=== PATIENT | female | born 1995 | race Caucasian/White ===

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

== ENCOUNTER 2017-07-06 17:09 | Emergency (ER) | payer SELFPAY ==
[2017-07-06 18:20] VITALS: BP 115/77
--- NOTE | 2017-07-06 19:15 | UC ---
Ear Complaint HPI - HPI Summary HPI Summary: 3 WEEKS OF COUGH AND CHEST CONGESTION. RIGHT EAR PAIN OVER PAST 2 DAYS. NO FEVER, N/V/D. NO BODY ACHES. - History of Current Complaint Chief Complaint: UCEar Stated Complaint: COUGH,SORE THROAT,EARACHE Time Seen by Provider: 07/06/17 18:56 Hx Obtained From: Patient Hx Last Menstrual Period: 06/10/17 Onset/Duration: Gradual Onset, Lasting Weeks, Still Present Severity Initially: Moderate Severity Currently: Moderate Pain Intensity: 6 Pain Scale Used: 0-10 Numeric Aggravating Factors: Nothing Alleviating Factors: Nothing Associated Signs/Symptoms: Positive: URI Symptoms. Negative: Discharge, Hearing Loss - Allergies/Home Medications Allergies/Adverse Reactions: Allergies Allergy/AdvReac Type Severity Reaction Status Date / Time Atropine [From ] Allergy Severe Anaphylatic Verified 07/06/17 18:20 Shock Bee Venom Allergy Severe Anaphylatic Verified 07/06/17 18:20 Shock Hyoscyamine [From ] Allergy Severe Anaphylatic Verified 07/06/17 18:20 Shock Phenobarbital [From ] Allergy Severe Anaphylatic Verified 07/06/17 18:20 Shock Scopolamine [From ] Allergy Severe Anaphylatic Verified 07/06/17 18:20 Shock Cephalexin [From Keflex] Allergy Intermediate Rash Verified 07/06/17 18:20 PMH/Surg Hx/FS Hx/Imm Hx Psychological History: Depression - Surgical History Surgical History: None Surgery Procedure, Year, and Place: denies - Family History Known Family History: Positive: Hypertension Negative: Cardiac Disease - Social History Alcohol Use: None Substance Use Type: None, Sedatives Smoking Status (MU): Never Smoked Tobacco Have You Smoked in the Last Year: No Household Exposure Type: Cigarettes - Immunization History Hx Tetanus, Diphtheria Vaccination: Yes Vaccination Up to Date: Yes Review of Systems Constitutional: Fatigue ENT: Ear Ache, Nasal Discharge Respiratory: Cough Cardiovascular: Negative Gastrointestinal: Negative All Other Systems Reviewed And Are Negative: Yes Physical Exam Triage Information Reviewed: Yes Appearance: Well-Appearing, No Pain Distress, Well-Nourished Vital Signs: Initial Vital Signs Temp 99.1 F 07/06/17 18:13 Pulse 84 07/06/17 18:13 Resp 18 07/06/17 18:13 BP 115/77 07/06/17 18:13 Pulse Ox 100 07/06/17 18:13 Vital Signs Reviewed: Yes Eyes: Positive: Conjunctiva Clear ENT: Positive: Hearing grossly normal, Pharynx normal, TMs normal Neck: Positive: Supple, Nontender, No Lymphadenopathy Respiratory Exam: Normal Cardiovascular Exam: Normal Abdomen Description: Positive: Soft Musculoskeletal: Positive: No Edema Neurological: Positive: Alert Psychological: Positive: Age Appropriate Behavior Skin: Negative: rashes Ear Complaint Course/Dx - Differential Dx/Diagnosis Provider Diagnoses: ACUTE URI Discharge - Discharge Plan Condition: Stable Disposition: HOME Patient Education Materials: Upper Respiratory Infection (ED), Earache (ED) Referrals: Mena Ackerman MD [Primary Care Provider] - If Needed Additional Instructions: TRY OTC AFRIN FOR NASAL CONGESTION. OKAY TO USE 2-3 SPRAYS IN EACH NOSTRIL UP TO 2 TIMES DAILY. DO NOT USE FOR MORE THAN 3-4 CONSECUTIVE DAYS TO PREVENT DEVELOPING REBOUND CONGESTION. EAR PAIN, NON-SPECIFIC There are many causes of ear pain in adults. Pain that's felt in the ear can actually be coming from somewhere nearby. This is called "referred pain." Problems in the teeth, throat, or jaw joint (TMJ) often cause ear pain. Sometimes the physical exam or medical history suggests a treatable cause. If not, we may wait for the pain to go away. New symptoms may offer a clue to the cause of the pain. Report any changes to your care provider. These are some conditions that can cause ear pain, but may not be obvious from physical examination: Eardrum injury Pressure changes (barotrauma) due to swimming or shock waves Mild trauma such as Q-tip injury or finger-picking the outer ear Mild outer ear infection (swimmer's ear) Low-grade or chronic middle ear infection Mastoiditis (infection in the bone behind the ear) TMJ syndrome or arthritis of the jaw Pressure from hard earwax Tooth infection Infected tonsil Sinus infection Nerve disease such as Davidson's Palsy Follow your care provider's treatment recommendations. Let the ear rest. Don't insert cotton swabs, dig at the ear with your finger, or force your ears to "pop." If you're not improving after a few days, or if new symptoms arise, see the doctor. Watch for: Decreased hearing Spreading pain or headache Drainage or bleeding from the ear Fever Weakness of the face muscles Other new symptoms YOUR SYMPTOMS ARE LIKELY VIRALLY MEDIATED AND SHOULD RESOLVE ON THEIR OWN WITH TIME. REST, HYDRATE, OTC MEDS NEEDED. SEEK FOLLOW-UP IF YOU ARE NOT IMPROVING OVER THE NEXT 1-2 WEEKS.
== END 2017-07-06 19:32 | disposition home or self-care (01) ==
LOC: UCEAST 17:09
DX: J06.9 Acute upper respiratory infection, unspecified (principal)
CPT/HCPCS: 99211; G0463

== ENCOUNTER 2019-04-27 17:00 | Emergency (ER) | payer OTHER ==
[2019-04-27] MEDS ORDERED: Ibuprofen TAB* 400 MG PO ONE (19:09)
[2019-04-27 20:26] LABS: ABS Basophils 0.1 10^3/ul (0-0.2); ABS Monocytes 1.3 10^3/ul (0-0.8); ABS Neutrophils 10.4 10^3/ul (1.5-7.7); Eosinophil % 0.2 %; Hematocrit 43 % (35-47); Hemoglobin 15.3 g/dL (12.0-16.0); Lymphocyte % 14.6 %; Mean Corpuscular HGB Conc 35 g/dL (31-36); Mean Corpuscular Hemoglobin 30 pg (27-31); Mean Corpuscular Volume 85 fL (80-97); Mean Platelet Volume 7.9 fL (7.4-10.4); Platelet Count 252 10^3/uL (150-450); Red Blood Count 5.11 10^6 /uL (3.70-4.87); Red Cell Distribution Width 14 % (10-15); White Blood Count 13.7 10^3/uL (3.5-10.8)
[2019-04-27 20:42] LABS: Albumin 4.8 g/dL (3.2-5.2); Albumin/Globulin Ratio 1.3 (1-3); BUN/Creatinine Ratio 7.6 (8-20); EGFR African American 92.4 (>60); EGFR Non-African American 76.3 (>60); Globulin 3.7 g/dL (2-4); Potassium 3.6 mmol/L (3.5-5.0); Total Protein 8.5 g/dL (6.4-8.9)
--- NOTE | 2019-04-27 21:11 | ED ---
Influenza-Like Illness - HPI Summary HPI Summary: Patient complains of productive cough, fever or diarrhea, body aches, sore throat, yellow nasal discharge, forehead pressure and headache, lightheadedness , nausea 3 days. Patient tolerating by mouth fluids. Patient denies CP, SOB, vomiting, abdominal pain, urine symptoms. Medical history is none. - History of Current Complaint Chief Complaint: EDFluSymptoms Time Seen by Provider: 04/27/19 21:08 Hx Obtained From: Patient Onset/Duration: Gradual Onset, Lasting Days Severity: Moderate Associated Signs & Symptoms: Fever, Myalgia, Cough, Sore Throat, Nasal Congestion, Headache, Diarrhea - Allergy/Home Medications Allergies/Adverse Reactions: Allergies Allergy/AdvReac Type Severity Reaction Status Date / Time MS Atropine [From ] Allergy Severe Anaphylatic Verified 07/06/17 18:20 Shock MS Bee Venom [Bee Venom] Allergy Severe Anaphylatic Verified 07/06/17 18:20 Shock MS Hyoscyamine Allergy Severe Anaphylatic Verified 07/06/17 18:20 [From ] Shock MS Phenobarbital Allergy Severe Anaphylatic Verified 07/06/17 18:20 [From ] Shock MS Scopolamine Allergy Severe Anaphylatic Verified 07/06/17 18:20 [From ] Shock MS Cephalexin [From Keflex] Allergy Intermediate Rash Verified 07/06/17 18:20 Home Medications: Home Medications Vit No.129/Iron/Folic [ One Daily] 1 tab PO DAILY 04/27/19 [ History Confirmed 04/27/19] PMH/Surg Hx/FS Hx/Imm Hx Endocrine/Hematology History: Denies: Hx Diabetes, Hx Thyroid Disease Cardiovascular History: Denies: Hx Hypertension Respiratory History: Denies: Hx Asthma, Hx Chronic Obstructive Pulmonary Disease (COPD) GI History: Denies: Hx Ulcer History: Denies: Hx Dialysis Sensory History: Denies: Hx Eye Prosthesis Opthamlomology History: Denies: Hx Legally Blind EENT History: Denies: Hx Deafness Neurological History: Denies: Hx CVA Psychiatric History: Reports: Hx Depression - Surgical History Surgery Procedure, Year, and Place: denies Infectious Disease History: No Infectious Disease History: Denies: Hx Clostridium Difficile, Hx Hepatitis, Hx Human Immunodeficiency Virus (HIV), Hx of Known/Suspected MRSA, Hx Shingles, Hx Tuberculosis, Hx Known/ Suspected VRE, Hx Known/Suspected VRSA, History Other Infectious Disease, Traveled Outside the [place] in Last 30 Days - Family History Known Family History: Positive: None, Hypertension Negative: Cardiac Disease - Social History Alcohol Use: None Substance Use Type: Reports: None, Sedatives Smoking Status (MU): Never Smoked Tobacco Have You Smoked in the Last Year: No Review of Systems Positive: Fever Eyes: Negative Positive: Sore Throat, Nasal Discharge Cardiovascular: Negative Positive: Cough Positive: Diarrhea, Nausea Genitourinary: Negative Positive: Myalgia Skin: Negative Positive: Headache Psychological: Normal All Other Systems Reviewed And Are Negative: Yes Physical Exam Triage Information Reviewed: Yes Vital Signs On Initial Exam: Initial Vitals Temp Pulse Resp BP Pulse Ox 100.9 F 128 18 132/85 97 04/27/19 17:03 04/27/19 17:03 04/27/19 17:03 04/27/19 17:03 04/27/19 17:03 Vital Signs Reviewed: Yes Appearance: Positive: Well-Appearing Skin: Positive: Warm Head/Face: Positive: Normal Head/Face Inspection Eyes: Positive: Normal ENT: Positive: Normal ENT inspection Neck: Positive: Supple Respiratory/Lung Sounds: Positive: Clear to Auscultation Cardiovascular: Positive: Normal Abdomen Description: Positive: Nontender Musculoskeletal: Positive: Normal Neurological: Positive: Normal Psychiatric: Positive: Normal AVPU Assessment: Alert - Shanti Coma Scale Best Eye Response: 4 - Spontaneous Best Motor Response: 6 - Obeys Commands Best Verbal Response: 5 - Oriented Coma Scale Total: 15 Procedures - Sedation Patient Received Moderate/Deep Sedation with Procedure: No Diagnostics - Vital Signs Vital Signs Temp Pulse Resp BP Pulse Ox 04/27/19 20:03 101.1 F 154 18 124/98 97 04/27/19 17:03 100.9 F 128 18 132/85 97 - Laboratory Lab Results: Lab Results 04/27/19 04/27/19 04/27/19 Range/Units 20:15 20:15 20:15 WBC 13.7 H (3.5-10.8) 10^3/uL RBC 5.11 H (3.70-4.87) 10^6 /uL Hgb 15.3 (12.0-16.0) g/dL Hct 43 (35-47) % MCV 85 (80-97) fL MCH 30 (27-31) pg MCHC 35 (31-36) g/dL RDW 14 (10-15) % Plt Count 252 (150-450) 10^3/uL MPV 7.9 (7.4-10.4) fL Neut % (Auto) 75.6 % Lymph % (Auto) 14.6 % Humphreys % (Auto) 9.2 % Eos % (Auto) 0.2 % Baso % (Auto) 0.4 % Absolute Neuts (auto) 10.4 H (1.5-7.7) 10^3/ul Absolute Lymphs (auto) 2.0 (1.0-4.8) 10^3/ul Absolute Monos (auto) 1.3 H (0-0.8) 10^3/ul Absolute Eos (auto) 0.0 (0-0.6) 10^3/ul Absolute Basos (auto) 0.1 (0-0.2) 10^3/ul Absolute Nucleated RBC 0.0 10^3/ul Nucleated RBC % 0.0 Sodium 139 (135-145) mmol/L Potassium 3.6 (3.5-5.0) mmol/L Chloride 103 (101-111) mmol/L Carbon Dioxide 26 (22-32) mmol/L Anion Gap 10 (2-11) mmol/L BUN 7 (6-24) mg/dL Creatinine 0.92 (0.51-0.95) mg/dL Est GFR ( Amer) 92.4 (>60) Est GFR (Non-Af Amer) 76.3 (>60) BUN/Creatinine Ratio 7.6 L (8-20) Glucose 100 (70-100) mg/dL Lactic Acid 0.8 (0.5-2.0) mmol/L Calcium 10.0 (8.6-10.3) mg/dL Total Bilirubin 1.00 (0.2-1.0) mg/dL AST 20 (13-39) U/L ALT 32 (7-52) U/L Alkaline Phosphatase 85 (34-104) U/L Total Protein 8.5 (6.4-8.9) g/dL Albumin 4.8 (3.2-5.2) g/dL Globulin 3.7 (2-4) g/dL Albumin/Globulin Ratio 1.3 (1-3) Result Diagrams: 04/27/19 20:15 04/27/19 20:15 Lab Statement: Any lab studies that have been ordered have been reviewed, and results considered in the medical decision making process. Flu Symptom Course/Dx - Course Course Of Treatment: Patient complains of productive cough, fever or diarrhea, body aches, sore throat, yellow nasal discharge, forehead pressure and headache , lightheadedness, nausea 3 days. Patient tolerating by mouth fluids. Patient denies CP, SOB, vomiting, abdominal pain, urine symptoms. Medical history is none. Temp 102.1. Heart rate 154. Vital signs otherwise within normal limits. WBC 13.7. Labs otherwise unremarkable. Humphreys negative. Strep negative. - Diagnoses Provider Diagnoses: Sinusitis Discharge ED - Sign-Out/Discharge Documenting (check all that apply): Patient Departure - Discharge Plan Condition: Stable Disposition: HOME Patient Education Materials: Sinusitis (ED) Referrals: No Primary Care Phys,NOPCP [Primary Care Provider] - Additional Instructions: Take antibiotics as directed. Alternate ibuprofen 600 mg with Tylenol 650 mg every 3 hours for body aches, headache and fever control. Use lidocaine as directed for sore throat pain. Drink plenty of fluids to maintain hydration. Follow-up with primary care. - Billing Disposition and Condition Condition: STABLE Disposition: Home
[2019-04-27] MEDS ORDERED: Lidocaine 2% VISCOUS* 15 ML UDC PO ONE (21:32)
[2019-04-27 21:51] LABS: Rapid Strep Molecular Negative (Negative)
[2019-04-27 21:58] LABS: Influenza A Molecular NEGATIVE (Negative); Influenza B Molecular NEGATIVE (Negative)
[2019-04-27] MEDS ORDERED: Amoxicillin/Clavulanate TAB* 875 MG PO ONE (22:47)
[2019-04-27 23:20] VITALS: BP 90/49
== END 2019-04-27 23:19 | disposition home or self-care (01) ==
LOC: ED 17:00
DX: J32.9 Chronic sinusitis, unspecified (principal); Z88.1 Allergy status to other antibiotic agents; Z88.8 Allergy status to other drugs, medicaments and biological substances
CPT/HCPCS: 36415; 71046; 80053; 83605; 85025; 86308; 87040; 87651; 99283; A9270-GY